=== PATIENT | female | born 1945 | race Caucasian/White ===

== ENCOUNTER 2017-08-18 06:50 | Day surgery (SDC) | payer MEDICARE, OTHER ==
[2017-08-18] VITALS (9 sets, daily range): BP systolic 111–153; BP diastolic 51–66; PULSE 80–96; TEMP 98.1
[~2017-08-18] VITALS: Ht 160 cm; Wt 55.1 kg
[2017-08-18] MEDS ORDERED: ALEVE 220MG220 MG PO (08:39)
[2017-08-19 01:43] VITALS: BP 112/44; PULSE 77; TEMP 98.5
[2017-08-19 05:42] VITALS: BP 119/57; PULSE 67; TEMP 98.3
[2017-08-19 09:15] VITALS: BP 98/42; PULSE 79; TEMP 99.1
[2017-08-19 13:49] VITALS: BP 111/50; PULSE 81; TEMP 97.9
[2017-08-19] MEDS ORDERED: NORCO 325 MG-7.1 TAB PO (15:46)
== END 2017-08-19 16:30 | disposition home or self-care (01) ==
LOC: SDCO 06:50 → SURG 19:31 → SDCO 08-19 16:30
DX: C50.412 Malignant neoplasm of upper-outer quadrant of left female breast (principal); Z17.0 Estrogen receptor positive status [ER+]; F17.210 Nicotine dependence, cigarettes, uncomplicated; Z90.710 Acquired absence of both cervix and uterus; Z80.3 Family history of malignant neoplasm of breast
CPT/HCPCS: OP; A9541; J0690; J1100; J1885; J2250; J2405; J2704; J2795; J3010; J7120; Q9968